=== PATIENT | male | born 1945 | race Caucasian/White ===

== ENCOUNTER → 2016-09-30 | Outpatient (CLI) | payer OTHER ==
[~2016-09-30] MED LIST: ALFU10TA30 PO; ASPI-232 PO; ATOR-26 PO; CHOL20005 PO; FEXO1TAB46 PO; LEVO125T72 PO; METR1GEL3 TD; MULT-506 PO; OMEG10007 PO; RAMI5CAP PO; TERA1CAP PO; VERA240T20 PO
== END | disposition home or self-care (01) ==
LOC: C.LAB 10:17
PROVIDERS: ATTEND Radiology Radiation Oncology
DX: C61 Malignant neoplasm of prostate (principal)

== ENCOUNTER → 2016-10-07 | Outpatient (CLI) | payer OTHER ==
[2015-10-08 13:53] VITALS: BP 145/75; PULSE 68
[2016-10-07 13:53] VITALS: BP_SYST 163; BP_SYST 169; BP_DIAS 75; BP_DIAS 80; PULSE 76; TEMP 37.1; O2SAT 97
--- NOTE | 2016-10-07 16:28 | Radiation Oncology Follow-Up ---
Radiation Oncology Follow-Up Date of Visit Oct 07, 2016. Reason For Visit Annual follow-up Radiation Completion Date Cesium 131 seed implant Diagnosis (1) Prostate cancer Status: Resolved Onset Date: 08/21/2012 Location: both lobes of the prostate Histology Subtype: adenocarcinoma Stage: ll (B) Permanent Comment: Rising PSA pretreatment PSA 5.2 Status post ultrasound-guided biopsies 08/21/2012 biopsy stage T2a Drake 3+3 Watchful waiting Status post ultrasound-guided biopsies 09/25/2013 biopsy stage T2b Drake 3+3 Watchful waiting Status post ultrasound-guided biopsies 09/30/2014 biopsy staged T2c Drake 3+3 Status post prostate seed implant with cesium 131 03/04/2015 received 11,500 cGy Last Edited By: Netta Ruth on Mar 17, 2015 14:22 History of Present Illness Mr. Arroyo is a 70-year-old male who was having increasing urinary symptoms and a gradual rise in prostate-specific antigen. The prostate-specific antigen on 12/07/2010 was 3.06. 12/13/2011 3.25. However on 06/21/2012 the prostatespecific antigen jumped to 4.51. This was repeated on 07/21/2012 and remained elevated at 5.2. He was seen by Dr. Lopez and because of the change in prostate-specific antigen performed transrectal ultrasound-guided biopsy the prostate on August 212011. A total of 15 biopsies were taken and all were negative with the exception of the left apex when atypical small acinar proliferation was identified and the right anterior were an adenocarcinoma with a Marilia grade of 3+ 3 was noted involving 5-8% of the core tissue sample with no perineural invasion identified. High-grade PIN was appreciated. Case: [id number]. With this diagnosis the patient was seen in our department and by Dr. Cuello for discussion of the role of radical prostatectomy and discussion of the radiation treatment options. The patient appeared to have a very low risk disease. The patient therefore opted to proceed with active surveillance. A repeat prostate-specific antigen was performed on December 202012 and was 4.27. On 04/02/2013 the prostate-specific antigen was 4.81. On 07/05/2013 the prostate-specific antigen was 5.90 and 08/22 6.57. Patient chose to have a repeat biopsy which was performed on 09/25/2013. A total of 15 biopsies were taken. One of 2 biopsies know left base was positive for an adenocarcinoma Marilia grade 3+3 involving 33% of the core sample with no perineural invasion seen. A single biopsy of the left anterior gland revealed adenocarcinoma Drake grade 3+3 involving 7% of the core sample with no perineural invasion seen. Mild chronic inflammation was appreciated. A total of 2 out of 15 biopsies were therefore positive. Case: [id number]. The patient continued to choose to be followed with active surveillance. A repeat prostate-specific antigen on 01/04/2014 was 5.44. 03/27/2014 4.73 and 07/10/2014 7.03. On 07/22/2014 prostate-specific antigen was 5.97. With this persistent but slow rise in prostate-specific antigen a third biopsy was performed on September 302014. A total of 14 biopsies were taken this time by Dr. Araiza. Biopsy of the right base and right apex revealed atypical small acinar proliferation. Biopsy of the left mid gland revealed adenocarcinoma in 2 core samples involving 35% of each core sample with no perineural invasion identified. One of 2 biopsies from the right mid gland were positive for adenocarcinoma Marilia grade 3+3 involving 10% of the core sample with no perineural invasion seen. Therefore a total of 3 out of 14 biopsies were positive. Case: [id number]. The patient was considering ongoing active surveillance or treatment. Dr. Araiza therefore ordered specialized testing by [facility]. The results of PTEN revealed no deletions in 95% of the cells sampled. Homozygous deletion was detected and 0% and hemizygous deletion was detected in 5%. This case was considered normal for PTEN status. ER G was also evaluated area and 70% of the cells were normal. There was a 30% of the cells showing (CNI). This is above the threshold of 13%. Therefore this was considered a positive result. Overall therefore with normal PTEN and abnormal ERG this was considered a unfavorable prognostic value. This was felt to be associated with poor disease specific survival as well as a high likelihood of biochemical recurrence in men undergoing radical prostatectomy for localized prostate cancer. The patient's urination remains excellent with an AUA score of 5. He Also Completed the Expanded Prostate Cancer Index Composite for Clinical Practice (EPIC-CP). He received one of 12 for urinary incontinence symptom score, one of 12 urinary irritation/obstruction symptom score, 0 of 12 bowel symptom score, 3 of 12 sexual symptom score And 0 of 12 I Doubt He/Hormonal Symptom Score. His Overall Prostate Cancer Quality of Life Score Was 5 of 60. The patient was therefore seen today to discuss the potential role of radiation following apparent progression in volume of disease and an unfavorable prognostic finding on testing. The patient made decision to undergo another ultrasound-guided biopsy. That was performed on 09/30/2014. This revealed Marilia 3+3. There were 3 of 14 biopsies positive. The percentages were now increasing. One percent is up to 35%. With the changes the patient made the decision to undergo Radiation therapy with seed implant. Interim History Please been doing well over this past year. He denies any difficulty with urination. His AUA score was 3. He does continue on Uroxatral. He completed expanded prostate cancer index composite for clinical practice and gave a score of one of 12 in urinary incontinence symptoms. He gave a score of 0 of 12 in urinary irritation symptoms. He gave a score of 0 of 12 and bowel symptoms. He gave a score of 5 of 12 and sexual symptoms. He gave a score of 0 12 and hormonal vitality symptoms. His total was 6 of 60. He had a PSA prior to his visit today on 09/30/2016. That was found to be 0.276. The PSA prior was 04/07 and was 0.257. He is scheduled for colonoscopy in October. He has a history of colon polyps. I did review with him that many times can be of finding changes in the rectum after undergoing radiation therapy. He is not having any problems with rectal bleeding or change in bowel habits. Allergies Coded Allergies: Penicillins (Verified Allergy, Unknown, HIVES-NOT SURE IF RELATED TO MEDICATION, 03/04/15) PT STATES THAT HE WAS TAKING PENICILLIN FOR TOOTH ABSCESS AND ON DAY 10 HE STARTED DEVELOPING HIVES. PT'S PCP WAS NOT SURE IF HIVES WERE D/T THE MEDICATION OR NOT, SO IT IS LISTED AN ALLERGY. Home Medications Scheduled Alfuzosin Hcl (Uroxatral), 10 MG PO DAILY Aspirin (Aspir-81), 81 MG PO QPM Atorvastatin (Lipitor), 40 MG PO Q2D Cholecalciferol (Vitamin D3), 2,000 INTER.UNIT PO QAM Fexofenadine Hcl (Manda), 180 MG PO QAM Fish Oil ([place]-3), 2 CAP PO DAILY Levothyroxine Sodium (Synthroid), 125 MCG PO QAM Metronidazole Hcl (Metrogel), 1 APPLN TD PRN UD Multivitamin (Multivitamin), 1 TAB PO QAM Ramipril (Ramipril), 1 TAB PO DAILY Terazosin Hcl (Hytrin), 1 MG PO QPM Verapamil Sust Rel (Calan Sr Ext Rel), 240 MG PO QAM Verapamil Sust Rel (Calan Sr Ext Rel), 120 MG PO QPM Review of Systems Gastrointestinal: Symptoms: WNL GI Comments: No fiber supplements Oral: Symptoms: No Problems Respiratory: Symptoms: WNL Urinary: Symptoms: WNL Comments: Takes uroxatral daily Skin: Symptoms: No Problems Other Skin Symptoms: "dry lower legs " Physical Exam Vital Signs Date Time Temp Pulse Resp B/P Pulse Ox O2 Delivery O2 Flow Rate FiO2 10/07/16 13:53 37.1 76 16 163/80 97 169/75 Pain: Side: Bilateral Patient Pain Scale: 0 - 10 Initial Pain Intensity: 0.0 Fatigue: None General Appearance: no apparent distress Eyes: normal inspection, EOMI ENT: normal ENT inspection, hearing grossly normal Neck: no adenopathy Respiratory/Chest: lungs clear, no respiratory distress, no accessory muscle use Cardiovascular: regular rate, rhythm, no gallop, no murmur Abdomen: non tender, soft Anal / Rectum: Normal sphincter tone. Prostate is firm and is centrally raised. Consistent with a seed implant. No rectal masses and no rectal bleeding. Extremities: no pedal edema Neurologic/Psychiatric: no motor/sensory deficits, alert, normal mood/affect Skin: warm/dry Lymphatic: no adenopathy Laboratory Studies Test 08/25/16 09:16 09/30/16 10:32 Sodium Level 135 mmol/L (136-145) Potassium Level 4.0 mmol/L (3.5-5.1) Chloride Level 101 mmol/L (98-107) Carbon Dioxide Level 27 mmol/L (21-32) Anion Gap 7.0 mmol/L (3-11) Blood Urea Nitrogen 20 mg/dl (7-18) Creatinine 1.20 mg/dl (0.60-1.40) Estimated GFR () 71.1 Estimated GFR (Non- 61.3 BUN/Creatinine Ratio 16.3 (10-20) Random Glucose 94 mg/dl (70-99) Calcium Level 9.1 mg/dl (8.5-10.1) Total Bilirubin 0.6 mg/dl (0.2-1) Aspartate Amino Transferase (AST) 28 U/L (15-37) Alanine Aminotransferase (ALT) 45 U/L (12-78) Alkaline Phosphatase 59 U/L (45-117) Total Protein 7.8 gm/dl (6.4-8.2) Albumin 4.3 gm/dl (3.4-5.0) Globulin 3.5 gm/dl (2.5-4.0) Albumin/Globulin Ratio 1.2 (0.9-2) Thyroid Stimulating Hormone (TSH) 3.480 uIu/ml (0.300-4.500) Prostate Specific Antigen 0.276 ng/ml (0.000-4.000) Assessment & Plan Plan: We reviewed the recent PSA value. We compared this to PSAs that have been done over the past 4 years. He'll be seeing Dr. Brooks in 6 months with a recheck PSA we asked him to return to our office in 1 year. An order was given to have PSA prior to that visit. He is scheduled for colonoscopy in March to follow-up on a history of polyps. We discussed tapering off of Uroxatral and then stopping. He is going to try to stop the medication because he is doing very well with his urination. Total Time In Follow-Up I spent 15 minutes speaking to the patient and performing examination. I spent 15 minutes reviewing information in completing this note.
== END | disposition home or self-care (01) ==
LOC: C.ONC 13:46
PROVIDERS: ATTEND Radiology Radiation Oncology
DX: Z08 Encounter for follow-up examination after completed treatment for malignant neoplasm (principal); Z92.3 Personal history of irradiation; Z85.46 Personal history of malignant neoplasm of prostate

== ENCOUNTER → 2017-02-24 | Outpatient (CLI) | payer OTHER ==
[~2017-02-24] MED LIST changes: +ALFU10TA2 PO; -ALFU10TA30 PO
[2017-02-24 09:42] LABS: BASO % 0.4 %; BASO ABS # 0.03 K/uL (0-0.2); COMPLETE YES; EOS % 1.5 %; HEMATOCRIT 43.9 % (42-52); IG% 0.1 %; LYMPH % 15.9 %; LYMPH ABS # 1.24 K/uL (1.2-3.4); MEAN CELL VOLUME 96.3 fL (80-100); MEAN CORPUSCULAR HEMOGLOBIN 34.9 pg (25-34); MEAN CORPUSCULAR HGB CONC 36.2 g/dl (32-36); MEAN PLATELET VOLUME 9.2 fL (7.4-10.4); MONO % 13.2 %; NEUT % 68.9 %; PLATELET COUNT 271 K/uL (130-400); RED BLOOD COUNT 4.56 M/uL (4.7-6.1); WHITE BLOOD COUNT 7.78 K/uL (4.8-10.8)
[2017-02-24 10:10] LABS: ALT/SGPT 45 U/L (12-78); AST/SGOT 25 U/L (15-37); BLOOD UREA NITROGEN 21 mg/dl (7-18); BUN/CREATININE RATIO 17.8 (10-20); CALCIUM 9.3 mg/dl (8.5-10.1); CARBON DIOXIDE 26 mmol/L (21-32); CHLORIDE 98 mmol/L (98-107); CHOLESTEROL 177 mg/dl (0-200); GLUCOSE 86 mg/dl (70-99); POTASSIUM 4.2 mmol/L (3.5-5.1); SODIUM 133 mmol/L (136-145); TRIGLYCERIDES 154 mg/dl (0-150); VERY LOW DENSITY LIPOPROT CALC 31 mg/dl
[2017-02-24 10:28] LABS: ALB/GLOB RATIO 1.2 (0.9-2); ALKALINE PHOSPHATASE 60 U/L (45-117); CHOLESTEROL/HDL RATIO 3.2; HDL CHOLESTEROL 55 mg/dl; LDL CHOLESTEROL CALCULATED 91 mg/dl
== END | disposition home or self-care (01) ==
LOC: C.LAB 08:24
PROVIDERS: ATTEND Internal Medicine
DX: Z87.39 Personal history of other diseases of the musculoskeletal system and connective tissue (principal)

== ENCOUNTER → 2017-03-29 | Outpatient (CLI) | payer OTHER ==
[~2017-03-29] MED LIST changes: -ALFU10TA2 PO; +ALFU10TA30 PO; +OPTIRAY 320 IV PRN
--- NOTE | 2017-03-29 08:33 | DIAGNOSTIC IMAGING REPORT ---
CT UROGRAM CLINICAL HISTORY: Hematuria. COMPARISON STUDY: Abdominal ultrasound dated 12/31/2011. TECHNIQUE: Before and following the IV administration of 106 cc of Optiray 320, CT urogram of the abdomen and pelvis is performed from the lung bases to the proximal femora. Images are reviewed in the axial, sagittal, and coronal planes. IV contrast was administered without complication. CT DOSE: 987.89 mGy.cm FINDINGS: Lung bases: The heart is normal in size and without pericardial effusion. The lung bases are clear. There is a tiny hiatal hernia. Liver: The contrast-enhanced liver is normal in size and contour. The liver demonstrates diffusely diminished attenuation consistent with steatosis. There is no intrahepatic biliary ductal dilatation. The hepatic veins and portal veins are patent. A 9 mm hepatic cyst is noted. Additional subcentimeter hepatic hypodensities also likely represent cysts but are too small for definitive characterization. Gallbladder: Unremarkable. Spleen: Normal in size and attenuation. Pancreas: Unremarkable. Adrenal glands: Unremarkable. Kidneys and ureters: The contrast enhanced kidneys demonstrate mild cortical atrophy and are without hydronephrosis. There are no renal calculi identified on the unenhanced images. The kidneys enhance and excrete symmetrically. There is no enhancing renal cortical mass lesion identified. There is no evidence of urothelial lesion within the renal pelvis bilaterally or along the course of either ureter. Abdominal vasculature: The abdominal aorta is normal in course and caliber noting moderate to advanced atherosclerotic calcification. Bowel: The small bowel and colon are normal in course and caliber. Moderate colonic fecal retention is observed. The appendix is well-visualized and normal. Peritoneum: There is no intraperitoneal free air or abdominal ascites. There is trace fluid in the pelvis. There is a fat-containing umbilical hernia. Lymphadenopathy: None. Pelvic viscera: The prostate gland is diminutive and heterogeneous. Brachytherapy seeds are noted. The bladder wall appears mildly thickened and trabeculated suggesting chronic outlet obstruction. The bladder is otherwise normal as imaged. Skeletal structures: The skeletal structures are osteopenic. No lytic or blastic Bony lesions are seen. There are bilateral pars defects at L5. No anterolisthesis is seen at L5-S1. IMPRESSION: 1. The kidneys enhance and excrete symmetrically. No renal calculi are identified. 2. There is no enhancing renal cortical mass, and no evidence of urothelial lesion within the renal pelvis bilaterally or along the course of the ureters. 3. The prostate gland is diminutive and heterogeneous. Brachytherapy seeds are noted. 4. The appearance of the bladder suggests chronic outlet obstruction. The partially decompressed bladder is otherwise normal as visualized. 5. Hepatic steatosis. 6. Hiatal hernia. 7. Trace free fluid in the pelvis is nonspecific. 8. Additional findings as above. Electronically signed by: Apolinar Castellanos M.D. 03/29/2017 8:31 AM Dictated Date/Time: 03/29/2017 8:23 AM
[2017-03-29 09:50] LABS: URINE APPEARANCE CLEAR (CLEAR); URINE BILIRUBIN NEG (NEG); URINE COLOR YELLOW; URINE EPITHELIAL CELL AUTO 0-5 /lpf (0-5); URINE NITRITE NEG (NEG); URINE SPECIFIC GRAVITY 1.015 (1.000-1.030); UROBILINOGEN NEG (NEG)
[2017-03-29 10:02] LABS: MANUAL MICROSCOPIC REQUIRED? NO; REVIEW REQ? NO
== END | disposition home or self-care (01) ==
LOC: C.CTS 06:29
PROVIDERS: ATTEND Nurse Practitioner Adult Health
DX: R31.9 Hematuria, unspecified (principal); K76.0 Fatty (change of) liver, not elsewhere classified; K44.9 Diaphragmatic hernia without obstruction or gangrene

== ENCOUNTER → 2017-07-06 | Day surgery (SDC) | payer OTHER ==
[2017-06-28 09:53] VITALS: BMI 26.0
[~2017-07-06] VITALS: Ht 177.8 cm; Wt 84.1 kg
[~2017-07-06] MED LIST changes: -CHOL20005 PO; +LIDOCAINE HCL 2% 2 ML VIAL (20MG/ML) ONE; -METR1GEL3 TD; -MULT-506 PO; -OPTIRAY 320 IV PRN; +PROPOFOL IV EMULSION 10 MG/ML 20 ML VIAL IV ONE; +SODIUM CHLORIDE 0.9% 500ML 500 ML IV ONE
[2017-07-06 09:16] VITALS: Ht 177.8 cm; Wt 84.1 kg
--- NOTE | 2017-07-06 10:01 | Endo History and Physical ---
History & Physical Date of Service: Jul 06, 2017. Chief Complaint: SCREENING FOR COLON CA Referring Physician: DR. ALESHA OVALLE History of Present Illness 72 yo CM who presents for screening colonoscopy. Past Medical History Cancer, High Cholesterol, Hypertension, Thyroid Disease Past Surgical History Hx Cardiac Surgery: No Hx Internal Defibrillator: No Hx Pacemaker: No Hx Abdominal Surgery: No Hx of Implantable Prosthesis: No Hx Post-Op Nausea and Vomiting: No Hx Cancer Surgery: No Hx Thoracic Surgery: No Hx Orthopedic: No Hx Urinary Tract Surgery: Yes (CYSTOSCOPY, BRACHYTHERAPY) Family History None Social History Smoking Status: Never Smoker Hx Substance Use: No Hx Alcohol Use: Yes (3 DRINKS/WEEK) Allergies Coded Allergies: Penicillins (Verified Allergy, Unknown, HIVES-NOT SURE IF RELATED TO MEDICATION, 06/28/17) PT STATES THAT HE WAS TAKING PENICILLIN FOR TOOTH ABSCESS AND ON DAY 10 HE STARTED DEVELOPING HIVES. PT'S PCP WAS NOT SURE IF HIVES WERE D/T THE MEDICATION OR NOT, SO IT IS LISTED AN ALLERGY. Current Medications Reported Home Medications Medications Dose Route/Sig Max Daily Dose Days Date Category Benavides-3 (Fish Oil) 1 Ea Cap 2 Cap PO QPM 10/07/16 Reported Uroxatral (Alfuzosin HCl) 10 Mg Tab 10 Mg PO QPM 03/04/15 Reported Ramipril 5 Mg Cap 1 Tab PO QAM 02/20/15 Reported Calan Sr Ext Rel (Verapamil HCl) 240 Mg Tabcr 120 Mg PO QPM 02/17/15 Reported Aspir-81 (Aspirin) 81 Mg Tab 81 Mg PO QPM 11/14/14 Reported Synthroid (Levothyroxine Sodium) 125 Mcg Tab 125 Mcg PO QAM 10/01/14 Reported Lipitor (Atorvastatin Calcium) 80 Mg Tab 0.5 Tab PO Q2D 10/01/14 Reported Calan Sr Ext Rel (Verapamil HCl) 240 Mg Tabcr 240 Mg PO QAM 09/06/12 Reported Hytrin (Terazosin Hcl) 1 Mg Cap 1 Mg PO QPM 09/06/12 Reported Manda (Fexofenadine Hcl) 180 Mg Tab 180 Mg PO QAM 09/06/12 Reported Vital Signs Weight (Kilograms): 84.09 Height (Feet): 5 Height (Inches): 10 Date Time Temp Pulse Resp B/P (MAP) Pulse Ox O2 Delivery O2 Flow Rate FiO2 07/06/17 09:43 36.7 70 18 163/79 (107) 96 Room Air Physical Exam General Appearance: WD/WN, no apparent distress Respiratory/Chest: Auscultation: breath sounds normal Cardiovascular: Heart Auscultation: RRR Abdomen: Bowel Sounds: normal Inspection & Palpation: soft, non-distended, no tenderness, guarding & rebound Assessment and Plan Assessment: 72 yo CM who presents for screening colonoscopy. Plan: Proceed with colonoscopy.
--- NOTE | 2017-07-06 10:27 | GI REPORT ---
Procedure Date: 07/06/2017 9:50 AM Procedure: Colonoscopy Indications: Screening for colorectal malignant neoplasm Medicines: Monitored Anesthesia Care Complications: No immediate complications. Estimated Blood Loss: Estimated blood loss: none. Procedure: Pre-Anesthesia Assessment: - Prior to the procedure, a History and Physical was performed, and patient medications and allergies were reviewed. The patient's tolerance of previous anesthesia was also reviewed. The risks and benefits of the procedure and the sedation options and risks were discussed with the patient. All questions were answered, and informed consent was obtained. Prior Anticoagulants: The patient has taken aspirin, last dose was 1 day prior to procedure. ASA Grade Assessment: II - A patient with mild systemic disease. After reviewing the risks and benefits, the patient was deemed in satisfactory condition to undergo the procedure. After I obtained informed consent, the scope was passed under direct vision. Throughout the procedure, the patient's blood pressure, pulse, and oxygen saturations were monitored continuously. The Scope was introduced through the anus and advanced to the terminal ileum. The colonoscopy was performed without difficulty. The patient tolerated the procedure well. The quality of the bowel preparation was good. The terminal ileum, ileocecal valve, appendiceal orifice, and rectum were photographed. Findings: Non-bleeding internal hemorrhoids were found during retroflexion. The hemorrhoids were small. The exam was otherwise without abnormality. Impression: - Non-bleeding internal hemorrhoids. - The examination was otherwise normal. - No specimens collected. Recommendation: - Resume previous diet. - Continue present medications. - No repeat colonoscopy due to age and the absence of advanced adenomas. - Return to primary care physician as previously scheduled. Roman Pina DO 07/06/2017 10:27:16 AM This report has been signed electronically. Note Initiated On: 07/06/2017 9:50 AM I attest to the content of the Intraoperative Record and orders documented therein, exceptions below
--- NOTE | 2017-07-06 10:28 | Discharge Instructions ---
Endoscopy Patient Instructions Date / Procedure(s) Performed Jul 06, 2017. Colonoscopy Allergy Information Coded Allergies: Penicillins (Verified Allergy, Unknown, HIVES-NOT SURE IF RELATED TO MEDICATION, 06/28/17) PT STATES THAT HE WAS TAKING PENICILLIN FOR TOOTH ABSCESS AND ON DAY 10 HE STARTED DEVELOPING HIVES. PT'S PCP WAS NOT SURE IF HIVES WERE D/T THE MEDICATION OR NOT, SO IT IS LISTED AN ALLERGY. Discharge Date / Findings Jul 06, 2017. Internal hemorrhoids Medication Instructions Restart Stopped Medication(s): Aspirin OK to resume all medications today as prescribed Reported Home Medications Medications Dose Route/Sig Max Daily Dose Days Date Category [place]-3 (Fish Oil) 1 Ea Cap 2 Cap PO QPM 10/07/16 Reported Uroxatral (Alfuzosin HCl) 10 Mg Tab 10 Mg PO QPM 03/04/15 Reported Ramipril 5 Mg Cap 1 Tab PO QAM 02/20/15 Reported Calan Sr Ext Rel (Verapamil HCl) 240 Mg Tabcr 120 Mg PO QPM 02/17/15 Reported Aspir-81 (Aspirin) 81 Mg Tab 81 Mg PO QPM 11/14/14 Reported Synthroid (Levothyroxine Sodium) 125 Mcg Tab 125 Mcg PO QAM 10/01/14 Reported Lipitor (Atorvastatin Calcium) 80 Mg Tab 0.5 Tab PO Q2D 10/01/14 Reported Calan Sr Ext Rel (Verapamil HCl) 240 Mg Tabcr 240 Mg PO QAM 09/06/12 Reported Hytrin (Terazosin Hcl) 1 Mg Cap 1 Mg PO QPM 09/06/12 Reported Manda (Fexofenadine Hcl) 180 Mg Tab 180 Mg PO QAM 09/06/12 Reported Provider Instructions Activity Restrictions - No exercising or heavy lifting for 24 hours. - Do not drink alcohol the day of the procedure. - Do not drive a car or operate machinery until the day after the procedure. - Do not make any important decisions or sign important papers in 24 hours after the procedure. Following Day: - Return to full activity which may include returning to work/school. Diet Start your diet with liquids and light foods (jello, soup, juice, toast). Then eat your usual diet if not nauseated. Treatment For Common After Affects For mild abdominal pain, bloating, or excessive gas: - Rest - Eat lightly - Lie on right side Follow-Up Information Follow-up with DR. ALESHA OVALLE as scheduled Anesthesia Information What You Should Know You have had a procedure that required some medicine to reduce anxiety and discomfort. This treatment is called moderate sedation. After receiving the treatment, you may be sleepy, but you will be able to breathe on your own. The effects of the treatment may last for several hours. Follow these instructions along with Activity/Diet recommendations noted above: * Do NOT do anything where dizziness or clumsiness would be dangerous. * Rest quietly at home today, then you can be up and about tomorrow. * Have a responsible person stay with you the rest of today. * You may have had an I.V. today. If so, you may take the dressing off later today. Recommendations Call your doctor if: * Trouble breathing * Continuous vomiting for more than 24 hours * Temperature above 101 degrees * Severe abdominal pain or bloating * Pain not relieved by pain medicine ordered * There is increased drainage or redness from any incision * A large amount of rectal bleeding greater than 2-3 tablespoons. (If you had a polyp/s removed or have hemorrhoids, a small amount of blood - from the rectum is to be expected.) * You have any unanswered questions or concerns. IN THE EVENT OF A SERIOUS EMERGENCY, GO TO THE NEAREST EMERGENCY ROOM Your discharge instructions were prepared by provider Roman Pina. Patient Instructions Signature Page Selvin Arroyo Patient (or Guardian) Signature/Date: I have read and understand the instructions given to me by my caregivers. Caregiver/RN/Doctor Signature/Date: The above-named patient and/or guardian has received patient instructions on this date. + Original Patient Signature Page (only) stays with chart. Please make copy for patient.
[2017-07-06 10:53] VITALS: BP 124/70; PULSE 56; O2SAT 97
--- NOTE | 2017-07-06 11:15 | Anesthesiology Progress Note ---
Anesthesia Post Op Note Date & Time Jul 06, 2017 at 11:14 Vital Signs Pain Intensity: 0 Vital Signs Past 12 Hours Date Time Temp Pulse Resp B/P (MAP) Pulse Ox O2 Delivery O2 Flow Rate FiO2 07/06/17 10:53 56 18 124/70 (88) 97 Room Air 07/06/17 10:38 66 16 136/73 (94) 97 Room Air 07/06/17 10:23 66 16 129/70 (89) 97 Room Air 07/06/17 09:43 36.7 70 18 163/79 (107) 96 Room Air Notes Mental Status: alert / awake / arousable, participated in evaluation Pt Amnestic to Procedure: Yes Nausea / Vomiting: adequately controlled Pain: adequately controlled Airway Patency, RR, SpO2: stable & adequate BP & HR: stable & adequate Hydration State: stable & adequate Anesthetic Complications: no major complications apparent
== END | disposition home or self-care (01) ==
LOC: C.GI 09:06
PROVIDERS: ATTEND Internal Medicine
DX: Z12.11 Encounter for screening for malignant neoplasm of colon (principal); K64.8 Other hemorrhoids; I10 Essential (primary) hypertension; E78.00 Pure hypercholesterolemia, unspecified; E07.9 Disorder of thyroid, unspecified; Z79.899 Other long term (current) drug therapy

== ENCOUNTER → 2017-09-02 | Outpatient (CLI) | payer OTHER ==
[~2017-09-02] MED LIST changes: +ALFU10TA2 PO; -ALFU10TA30 PO; -LIDOCAINE HCL 2% 2 ML VIAL (20MG/ML) ONE; -PROPOFOL IV EMULSION 10 MG/ML 20 ML VIAL IV ONE; -SODIUM CHLORIDE 0.9% 500ML 500 ML IV ONE
[2017-09-02 09:38] LABS: BASO % 0.3 %; BASO ABS # 0.02 K/uL (0-0.2); COMPLETE YES; EOS % 2.7 %; HEMATOCRIT 43.4 % (42-52); IG% 0.3 %; LYMPH % 20.8 %; LYMPH ABS # 1.31 K/uL (1.2-3.4); MEAN CELL VOLUME 95.8 fL (80-100); MEAN CORPUSCULAR HEMOGLOBIN 34.4 pg (25-34); MEAN CORPUSCULAR HGB CONC 35.9 g/dl (32-36); MEAN PLATELET VOLUME 9.9 fL (7.4-10.4); MONO % 14.6 %; NEUT % 61.3 %; PLATELET COUNT 230 K/uL (130-400); RED BLOOD COUNT 4.53 M/uL (4.7-6.1)
[2017-09-02 10:14] LABS: ALT/SGPT 50 U/L (12-78); BLOOD UREA NITROGEN 16 mg/dl (7-18); BUN/CREATININE RATIO 13.4 (10-20); CALCIUM 9.1 mg/dl (8.5-10.1); CARBON DIOXIDE 27 mmol/L (21-32); CHLORIDE 96 mmol/L (98-107); CHOLESTEROL 166 mg/dl (0-200); CREATININE 1.22 mg/dl (0.60-1.40); GLUCOSE 93 mg/dl (70-99); POTASSIUM 3.9 mmol/L (3.5-5.1); SODIUM 130 mmol/L (136-145); TRIGLYCERIDES 132 mg/dl (0-150); VERY LOW DENSITY LIPOPROT CALC 26 mg/dl
[2017-09-02 10:24] LABS: ALB/GLOB RATIO 1.3 (0.9-2); ALKALINE PHOSPHATASE 61 U/L (45-117); AST/SGOT 31 U/L (15-37); CHOLESTEROL/HDL RATIO 3.2; HDL CHOLESTEROL 52 mg/dl; LDL CHOLESTEROL CALCULATED 88 mg/dl
== END | disposition home or self-care (01) ==
LOC: C.LAB 08:21
PROVIDERS: ATTEND Internal Medicine
DX: C61 Malignant neoplasm of prostate (principal); E03.9 Hypothyroidism, unspecified; E22.2 Syndrome of inappropriate secretion of antidiuretic hormone; E78.5 Hyperlipidemia, unspecified; E87.1 Hypo-osmolality and hyponatremia; I10 Essential (primary) hypertension; K76.0 Fatty (change of) liver, not elsewhere classified

== ENCOUNTER → 2017-10-04 | Outpatient (CLI) | payer OTHER | END | disposition home or self-care (01) | LOC: C.LAB 12:12 | PROVIDERS: ATTEND Physician Assistant Medical | DX: C61 Malignant neoplasm of prostate (principal) ==

== ENCOUNTER → 2017-10-11 | Outpatient (CLI) | payer OTHER ==
[2017-10-11 14:14] VITALS: BP 148/81; PULSE 72; TEMP 36.6; O2SAT 95
--- NOTE | 2017-10-11 15:33 | Radiation Oncology Follow-Up ---
Radiation Oncology Follow-Up Date of Visit Oct 11, 2017. Reason For Visit Annual follow up Radiation Completion Date s/p prostate seed impland with cesium 03/04/15 Diagnosis (1) Prostate cancer Status: Resolved Onset Date: 08/21/2012 Location: both lobes of the prostate Histology Subtype: adenocarcinoma Stage: ll (B) Permanent Comment: Rising PSA pretreatment PSA 5.2 Status post ultrasound-guided biopsies 08/21/2012 biopsy stage T2a Marilia 3+3 Watchful waiting Status post ultrasound-guided biopsies 09/25/2013 biopsy stage T2b Marilia 3+3 Watchful waiting Status post ultrasound-guided biopsies 09/30/2014 biopsy staged T2c Marilia 3+3 Status post prostate seed implant with cesium 131 03/04/2015 received 11,500 cGy Last Edited By: Netta Ruth on Mar 17, 2015 14:22 History of Present Illness Mr. Arroyo was having increasing urinary symptoms and a gradual rise in prostate -specific antigen. The prostate-specific antigen on 12/07/2010 was 3.06. 12/13/2011 3.25. However on 06/21/2012 the prostatespecific antigen jumped to 4.51. This was repeated on 07/21/2012 and remained elevated at 5.2. He was seen by Dr. Lopez and because of the change in prostate-specific antigen performed transrectal ultrasound-guided biopsy the prostate on August 212011. A total of 15 biopsies were taken and all were negative with the exception of the left apex when atypical small acinar proliferation was identified and the right anterior were an adenocarcinoma with a Debary grade of 3+ 3 was noted involving 5-8% of the core tissue sample with no perineural invasion identified. High-grade PIN was appreciated. Case: [id number]. With this diagnosis the patient was seen in our department and by Dr. Cuello for discussion of the role of radical prostatectomy and discussion of the radiation treatment options. The patient appeared to have a very low risk disease. The patient therefore opted to proceed with active surveillance. A repeat prostate-specific antigen was performed on December 202012 and was 4.27. On 04/02/2013 the prostate-specific antigen was 4.81. On 07/05/2013 the prostate-specific antigen was 5.90 and 08/22 6.57. Patient chose to have a repeat biopsy which was performed on 09/25/2013. A total of 15 biopsies were taken. One of 2 biopsies know left base was positive for an adenocarcinoma Debary grade 3+3 involving 33% of the core sample with no perineural invasion seen. A single biopsy of the left anterior gland revealed adenocarcinoma Marilia grade 3+3 involving 7% of the core sample with no perineural invasion seen. Mild chronic inflammation was appreciated. A total of 2 out of 15 biopsies were therefore positive. Case: [id number]. The patient continued to choose to be followed with active surveillance. A repeat prostate-specific antigen on 01/04/2014 was 5.44. 03/27/2014 4.73 and 07/10/2014 7.03. On 07/22/2014 prostate-specific antigen was 5.97. With this persistent but slow rise in prostate-specific antigen a third biopsy was performed on September 302014. A total of 14 biopsies were taken this time by Dr. Araiza. Biopsy of the right base and right apex revealed atypical small acinar proliferation. Biopsy of the left mid gland revealed adenocarcinoma in 2 core samples involving 35% of each core sample with no perineural invasion identified. One of 2 biopsies from the right mid gland were positive for adenocarcinoma Marilia grade 3+3 involving 10% of the core sample with no perineural invasion seen. Therefore a total of 3 out of 14 biopsies were positive. Case: [id number]. The patient was considering ongoing active surveillance or treatment. Dr. Araiza therefore ordered specialized testing by [employer]. The results of PTEN revealed no deletions in 95% of the cells sampled. Homozygous deletion was detected and 0% and hemizygous deletion was detected in 5%. This case was considered normal for PTEN status. ER G was also evaluated area and 70% of the cells were normal. There was a 30% of the cells showing (CNI). This is above the threshold of 13%. Therefore this was considered a positive result. Overall therefore with normal PTEN and abnormal ERG this was considered a unfavorable prognostic value. This was felt to be associated with poor disease specific survival as well as a high likelihood of biochemical recurrence in men undergoing radical prostatectomy for localized prostate cancer. The patient's urination remains excellent with an AUA score of 5. He Also Completed the Expanded Prostate Cancer Index Composite for Clinical Practice (EPIC-CP). He received one of 12 for urinary incontinence symptom score, one of 12 urinary irritation/obstruction symptom score, 0 of 12 bowel symptom score, 3 of 12 sexual symptom score And 0 of 12 I Doubt He/Hormonal Symptom Score. His Overall Prostate Cancer Quality of Life Score Was 5 of 60. The patient was therefore seen today to discuss the potential role of radiation following apparent progression in volume of disease and an unfavorable prognostic finding on testing. The patient made decision to undergo another ultrasound-guided biopsy. That was performed on 09/30/2014. This revealed Debary 3+3. There were 3 of 14 biopsies positive. The percentages were now increasing. One percent is up to 35%. With the changes the patient made the decision to undergo Radiation therapy with seed implant. Interim History He's been doing well over this past year. Today he gave an AUA score of 6. He does continue on Uroxatral. Last year we had discussed weaning off the medication. He felt that his urine status has been doing very well and therefore did not wish to stop the medication. He has concerns that if he stops the medication he'll then have difficulty with urination. He completed expanded prostate cancer index composite for clinical practice and gave a score of one of 12 and urinary incontinence symptoms. He gave a score of 0 12 and urinary irritation symptoms. He gave a score of 0 12 in bowel symptoms. He gave a score of 6 of 12 and sexual symptoms. He gave a score of 0 12 and hormonal vitality symptoms. His total was 7 of 60. He has had recheck PSAs. He had a PSA 03/29/2017 was 0.145. A PSA on 10/04/2017 was 0.131. He had a colonoscopy 07/06/2017. This was negative. There were no findings of telangiectasia of the rectum. Allergies Coded Allergies: Penicillins (Verified Allergy, Unknown, HIVES-NOT SURE IF RELATED TO MEDICATION, 06/28/17) PT STATES THAT HE WAS TAKING PENICILLIN FOR TOOTH ABSCESS AND ON DAY 10 HE STARTED DEVELOPING HIVES. PT'S PCP WAS NOT SURE IF HIVES WERE D/T THE MEDICATION OR NOT, SO IT IS LISTED AN ALLERGY. Home Medications Scheduled Alfuzosin Hcl (Uroxatral), 10 MG PO QPM Aspirin (Aspir-81), 81 MG PO QPM Atorvastatin (Lipitor), 0.5 TAB PO Q2D Fexofenadine Hcl (Manda), 180 MG PO QAM Fish Oil (Salem-3), 2 CAP PO QPM Levothyroxine Sodium (Synthroid), 125 MCG PO QAM Ramipril (Ramipril), 1 TAB PO QAM Terazosin Hcl (Hytrin), 1 MG PO QPM Verapamil Sust Rel (Calan Sr Ext Rel), 240 MG PO QAM Verapamil Sust Rel (Calan Sr Ext Rel), 120 MG PO QPM Review of Systems Gastrointestinal: Symptoms: WNL GI Comments: No fiber supplements Oral: Symptoms: No Problems Respiratory: Symptoms: WNL Urinary: Symptoms: WNL, Nocturia Comments: Takes uroxatral daily Skin: Symptoms: No Problems Other Skin Symptoms: "dry lower legs " Physical Exam Vital Signs Date Time Temp Pulse Resp B/P (MAP) Pulse Ox O2 Delivery O2 Flow Rate FiO2 10/11/17 14:14 36.6 72 18 148/81 95 Fatigue: None General Appearance: no apparent distress Eyes: normal inspection, EOMI ENT: normal ENT inspection, hearing grossly normal Respiratory/Chest: lungs clear, no respiratory distress, no accessory muscle use Cardiovascular: regular rate, rhythm, no gallop, no murmur Abdomen: non tender, soft, no organomegaly Anal / Rectum: Normal sphincter tone. Prostate is consistent with a seed implant and centrally raised. No rectal masses and no rectal bleeding. Extremities: no pedal edema Neurologic/Psychiatric: no motor/sensory deficits, alert, normal mood/affect Skin: warm/dry Lymphatic: no adenopathy Pain Management Patient Reports Pain: No Side: Bilateral Pain Location: None Patient Preferred Pain Scale: 0 - 10 Initial Pain Intensity: 0.0 Pain Management Plan He denied pain therefore requires no pain management. Laboratory Laboratory Results: were reviewed Laboratory Comments: Reviewed in the interim history Pathology Pathology Results: not applicable Imaging Imaging Studies: not applicable Additional Studies Colonoscopy reviewed in the interim history. Assessment & Plan Plan: He is recheck PSAs were reviewed with him. Continue regular follow-up with Dr. Araiza, Dr. Ramsay, and nurse practitioner Jose Manuel. An order for a PSA was given for next year. He'll see Dr. Araiza in 6 months. We asked him to return to our office in 1 year. He may call if she has any questions or concerns in the interim. Total Time In Follow-Up I spent 20 minutes speaking to the patient performing examination. I spent 15 minutes reviewing information in completing this note. Copy To Artie Ramsay M.D.; Lisette RichardC.R.NHeidi; Eren Araiza M.D.
== END | disposition home or self-care (01) ==
LOC: C.ONC 14:07
PROVIDERS: ATTEND Physician Assistant Medical
DX: Z08 Encounter for follow-up examination after completed treatment for malignant neoplasm (principal); Z92.3 Personal history of irradiation; Z85.46 Personal history of malignant neoplasm of prostate

== ENCOUNTER → 2018-04-07 | Outpatient (CLI) | payer OTHER | END | disposition home or self-care (01) | LOC: C.LAB 11:05 | PROVIDERS: ATTEND Urology | DX: Z00.00 Encounter for general adult medical examination without abnormal findings (principal); I10 Essential (primary) hypertension; E78.5 Hyperlipidemia, unspecified; E87.1 Hypo-osmolality and hyponatremia; J30.9 Allergic rhinitis, unspecified; K62.1 Rectal polyp; E03.9 Hypothyroidism, unspecified; C61 Malignant neoplasm of prostate ==

== ENCOUNTER → 2018-05-11 | Outpatient (CLI) | payer OTHER | END | disposition home or self-care (01) | LOC: C.LAB 12:06 | PROVIDERS: ATTEND Internal Medicine | DX: E87.1 Hypo-osmolality and hyponatremia (principal) ==